=== PATIENT | male | born 1965 | race Caucasian/White ===

== ENCOUNTER 2017-05-05 12:05 | Inpatient (IN) | payer OTHER ==
[~2017-05-05] VITALS: Ht 180.3 cm; Wt 81.6 kg
--- NOTE | 2017-05-05 09:11 | NUR ---
PRN Zofran 4mg SL, Clonidine 0.1mg PO administered for nausea, no episodes of emesis and anxiety/irritability respectively. Call light within reach. Incoming nurse to reassess. Addendum: 05/06/17 at 1154 by CRESCENCIO LEONG RN Time 191
--- NOTE | 2017-05-05 14:55 | NUR ---
PRE-ASSESSMENT: Pre-Assessment done at intake office, client is A/O x4, he presents with flat affect, anxious mood, he is intoxicated, noted with delayed speech. Last alcoholic beverage a pint of vodka at 1330 prior to admission. T 98, RR 16, BP 117/73, HR 98, spO2 @ 98% on RA, pain 0/10. He is fully ambulatory. He denies any allergies; he denies any withdrawal-induced seizure. PMH: depression, pancreatitis. He denies taking medications at home. Substance history: Alcohol (Vodka) 750-1000 mL PO for the past week Longest period of sobriety 1 year from 2016 -2016. Unit protocol regarding vital signs Q4H, UDS, blood work, and controlled substance discuss with client, he stated, Ok, I got it.
[2017-05-05] MEDS ORDERED: LORAZEPAM 1 MG TABLET PO PRN (15:00)
[2017-05-05] MEDS ORDERED: LORAZEPAM 2 MG/1 ML VIAL IM PRN (15:00)
[2017-05-05] MEDS ORDERED: ONDANSETRON ODT 4 MG TAB.RAPDIS SL PRN (15:00)
[2017-05-05] MEDS ORDERED: ONDANSETRON 4 MG/2 ML VIAL IM PRN (15:00)
[2017-05-05] MEDS ORDERED: IBUPROFEN 400 MG TABLET PO PRN (15:00)
[2017-05-05] MEDS ORDERED: MIRALAX 17 GM POWD.PACK PO PRN (15:00)
[2017-05-05] MEDS ORDERED: LOPERAMIDE HCL 2 MG CAPSULE PO PRN ×2 (15:00)
[2017-05-05] MEDS ORDERED: MAGNESIUM HYDROXIDE 30 ML LIQUID UDC PO PRN (15:00)
[2017-05-05] MEDS ORDERED: ACETAMINOPHEN 325 MG TABLET PO PRN (15:00)
[2017-05-05] MEDS ORDERED: MAG HYDROX/AL HYDROX/SIMETH 30 ML LIQUID UDC PO PRN (15:00)
[2017-05-05] MEDS ORDERED: THIAMINE HCL 200 MG/2 ML VIAL IM ONE (15:00)
--- NOTE | 2017-05-05 15:05 | NUR ---
Admissions Note 51 year old male admitted to [facility] for withdrawal from alcohol. Client reports PMH pancreatitis, depression. Client is oriented to unit, educated about protocols and how to work TV and call light in his room. Weight: 180 pounds. Height: 5'11" Client appears anxious, skin intact. Bilateral lung clear on auscultation, abdomen soft, non-tender, no edema noted. Clients voice is soft, delayed, he avoids eye contact. Client has NKA. Regular diet ordered. Full code status ordered. Client denies any history of seizures. LBM was 05/05/17, moderate/brown/soft. Clients PCP Wilfred Calderon. He refuses PNA/FLU vaccine at this time, stating he is afraid he might get sick because of it. He gives verbal consent for HIV. Client states that he lives alone Dr John assessed client. Urine was collected upon admission. All safety measures instituted. [place] precaution. Call light within reach. Will continue to monitor.
[2017-05-05] MEDS ORDERED: LORAZEPAM 1 MG TABLET PO ONE (15:45)
[2017-05-05 15:50] LABS: *AMPHETAMINE, URINE NEGATIVE (NEGATIVE); *BARBITURATE, URINE NEGATIVE (NEGATIVE); *CANNABINOID, URINE NEGATIVE (NEGATIVE); *COCCAINE, URINE NEGATIVE (NEGATIVE); *OPIATE, URINE NEGATIVE (NEGATIVE); *PHENCYCLIDINE SCREEN,URINE NEGATIVE (NEGATIVE)
--- NOTE | 2017-05-05 16:08 | NUR ---
One time Ativan 2mg PO administered for anxiety/irritability. Call light within reach, will continue to monitor.
[2017-05-05 16:25] LABS: BASOPHILS # (AUTO) 0.1 K/uL (0.0-8.0); BASOPHILS % (AUTO) 1.1 % (0.0-2.0); EOSINOPHILS # (AUTO) 0.4 K/uL (0.0-0.7); EOSINOPHILS % (AUTO) 4.8 % (0.0-7.0); HEMATOCRIT 43.7 % (36.7-47.1); HEMOGLOBIN 15.1 g/dL (12.5-16.3); LYMPHOCYTES # (AUTO) 1.9 K/uL (20.0-40.0); LYMPHOCYTES % (AUTO) 25.9 % (20.5-51.5); MEAN CORPUSCULAR HEMOGLOBIN 32.7 uug (23.8-33.4); MEAN CORPUSCULAR HGB CONC 35 g/dL (32.5-36.3); MEAN CORPUSCULAR VOLUME 94.8 fL (73.0-96.2); MONOCYTES # (AUTO) 0.6 K/uL (2.0-10.0); MONOCYTES % (AUTO) 7.6 % (0.0-11.0); NEUTROPHILS # (AUTO) 4.5 K/uL (1.8-8.9); NEUTROPHILS % (AUTO) 60.6 % (38.5-71.5); PLATELET COUNT (AUTO) 339 K/uL (152-348); RED BLOOD CELL COUNT(AUTO) 4.61 MIL/uL (4.06-5.63); WHITE BLOOD COUNT (AUTO) 7.4 K/uL (3.6-10.2)
[2017-05-05 16:29] LABS: BILIRUBIN,TOTAL 0.2 mg/dL (0.2-1.0); CREATININE 1.1 mg/dL (0.6-1.3); MAGNESIUM 1.7 mg/dL (1.8-2.4); POTASSIUM 4.6 mmol/L (3.5-5.1); TOTAL PROTEIN, SERUM 8.3 g/dL (6.4-8.2)
--- NOTE | 2017-05-05 17:08 | NUR ---
Reassessment One time Ativan 2mg PO administered, client is in bed, eyes closed, RR 16, even, non-labored. Call light within reach, will continue to monitor.
[2017-05-05] MEDS: CLONIDINE HCL 0.1 MG TABLET PO PRN (19:11)
--- NOTE | 2017-05-05 19:15 | NUR ---
START OF SHIFT NOTE : Client is a 51 y/o male admitted for alcohol withdrawal. Last CIWA 5 at 19:00. Client reports NKA, Full Code , Reg. Diet. Client reports PMH pancreatitis, depression. Pt. denies any history of seizures. Pt. is resting the room , watching TV. Pt. complains of sleeplessness, mild body ache, increased level of anxiety. Bed in lowest/locked position. Side rails x 2 up/padded. Call light within reach.
--- NOTE | 2017-05-05 19:29 | NUR ---
END OF SHIFT Endorsed to incoming nurse. Client is in his room, he presents with anxious mood, flat affect, he is a/o x 4. Client is a 51 y/o male admitted for alcohol withdrawal. Last CIWA 7. One time dose of Ativan 2mg administered for anxiety/irritability. Seizure precautions rendered. Bed in lowest/locked position. Side rails x 2 up/padded. Call light within reach.
[2017-05-05] MEDS: diphenhydrAMINE 50 MG CAPSULE PO PRN (19:45)
[2017-05-05 20:00] VITALS: BP 106/64
[2017-05-05] MEDS ORDERED: MAGNESIUM OXIDE 400 MG TABLET PO ONE (21:00)
[2017-05-05] MEDS ORDERED: LORAZEPAM 1 MG TABLET PO SCH (21:00)
--- NOTE | 2017-05-05 21:00 | NUR ---
PRN BENADRYL Pt. complains of sleeplessness. PRN BENADRYL given as ordered. Safety measures in place : bed on lowest position with side rails x2 up for safety, call light within reach. Will continue to monitor closely and offer help.
--- NOTE | 2017-05-05 22:00 | NUR ---
RE-ASSESSMENT SAMANTHA Pt. is sleeping, RR=16 unlabored and even. Safety measures in place : bed on lowest position with side rails x2 up for safety, call light within reach. Will continue to monitor closely and offer help.
[2017-05-06] MEDS: LORAZEPAM 1 MG TABLET PO PRN ×2 (01:42→10:45)
--- NOTE | 2017-05-06 01:42 | NUR ---
Ativan PRN Pt presents with moderate anxiety & agitation. Pt states, "This isn't okay, I can't sleep". Pt's skin noted with moderate sweat, tremors felt upon touch, CIWA 8. Ativan 1mg PRN administered. Safety measures in place will continue to monitor.
--- NOTE | 2017-05-06 02:40 | NUR ---
RE-ASSESSMENT ATIVAN Pt. is sleeping, RR=16 unlabored and even. Safety measures in place : bed on lowest position with side rails x2 up for safety, call light within reach. Will continue to monitor closely and offer help.
[2017-05-06 04:00] VITALS: BP 123/81
--- NOTE | 2017-05-06 06:41 | NUR ---
END OF SHIFT NOTE : Client is a 51 y/o male admitted for alcohol withdrawal. Last CIWA 5 at 19:00. Client reports NKA, Full Code , Reg. Diet. Client reports PMH pancreatitis, depression. Pt. denies any history of seizures. Pt remains compliant with the treatment plan. PRN Benadryl, Ativan given during my shift. V/S remain WNL. RR=16, even and unlabored, lungs clear upon auscultation, abdomen soft and non- distended. Pt denies nausea, vomiting and diarrhea. CIWA taken when pt. was alert during the night, LAST CIWA= 5 at 0400 , VISSWY=195 ml, voided x3 , slept 9 hours. Safety measures in place : bed on lowest position with side rails x2 up for safety, call light within reach. Will continue to monitor closely and offer help.
--- NOTE | 2017-05-06 07:45 | NUR ---
START OF SHIFT Rcvd endorsement from ongoing nurse, client is in room, a/o x 4, he is in bed, presents with depressed, anxious mood, flat affect, disheveled, unshaved, flushed face, fine tremors, and moist skin noted. Client reports anxiety, irritability, nausea, no appetite, restless legs, and fatigue. Client denies any N/V/D. Encourage client to increase PO fluid intake as tolerated to facilitated detox. Encourage client to attend group therapy for skills to maintain sober. Client is a 51 y/o male admitted for withdrawal from alcohol. Last CIWA 5 @ 0400. Client is on 5 day Ativan taper, to start @ 0900. PRN Ativan 1mg CIWA 8 @ 0142, noted effective. Client slept 9 hrs. NKA, regular diet, full code. Bed in lowest/locked position, side rails x 2 up/padded, call light within reach. Will continue to monitor.
[2017-05-06 08:22] VITALS: BP 133/78
[2017-05-06] MEDS: FOLIC ACID 1 MG TABLET PO SCH (08:26)
[2017-05-06] MEDS: THIAMINE HCL 100 MG TABLET PO SCH (08:26)
[2017-05-06] MEDS: LORAZEPAM 1 MG TABLET PO SCH ×2 (08:26→12:13)
[2017-05-06] MEDS: MULTIVITAMINS,THERAPEUTIC TABLET PO SCH (08:26)
--- NOTE | 2017-05-06 08:27 | NUR ---
TB test administered to L forearm, client tolerated well.
[2017-05-06] MEDS ORDERED: TUBERCULIN,PURIF.PROT.DERIV. 5 TU/0.1 ML TEST ID ONE (09:00)
--- NOTE | 2017-05-06 10:45 | NUR ---
PRN Ativan 1mg PO for CIWA 9, fine tremors, nausea, sweats, anxiety and Clonidine 0.1mg PO for irritability. Will continue to monitor. Call light within reach.
[2017-05-06] MEDS: CLONIDINE HCL 0.1 MG TABLET PO PRN ×2 (10:46→16:55)
--- NOTE | 2017-05-06 11:45 | NUR ---
Reassessment PRN Ativan 1mg PO client continues to present with increased anxiety, he reports abdominal cramps, and Clonidine 0.1mg PO client continue to present with irritable mood, inability to stay still. Will administer schedule medication Ativan 2mg PO @ 1200. Will continue to monitor. Call light within reach.
[2017-05-06] MEDS: DICYCLOMINE HCL 20 MG TABLET PO PRN (12:13)
--- NOTE | 2017-05-06 12:13 | NUR ---
PRN Bentyl 20mg PO administered for abdominal spams, will continue to monitor. Call light within reach.
[2017-05-06 12:15] VITALS: BP 136/81
--- NOTE | 2017-05-06 12:26 | NUR ---
Therapist prompted client to come to group today. Client agreed
--- NOTE | 2017-05-06 13:13 | NUR ---
Reassessment PRN Bentyl 20mg, client reports relief from abdominal spams. Call light within reach.
[2017-05-06] MEDS: HYDROXYZINE PAMOATE 25 MG CAPSULE PO PRN (14:01)
--- NOTE | 2017-05-06 14:01 | NUR ---
PRN Vistaril 50mg PO administered for anxiety. call light within reach.
--- NOTE | 2017-05-06 15:01 | NUR ---
Reassessment PRN Vistaril 50mg PO, client is in bed, he stated "I'm plannng on going to group therapy, I feel a little less anxious." Call light within reach.
[2017-05-06 16:54] VITALS: BP 138/99
--- NOTE | 2017-05-06 16:55 | NUR ---
Patient c/o anxiety, irritability. Adm Clonidine 0.1 mg PO PRN. Will monitor for safety. Call light with in reach
--- NOTE | 2017-05-06 17:55 | NUR ---
reassessment- Pt sitting in bed, watching TV, drinking water. Will continue to monitor. call light with in reach.
--- NOTE | 2017-05-06 18:45 | NUR ---
END OF SHIFT Client is a 51 y/o male, a/o x 4, admitted for withdrawal from alcohol. Last CIWA @ 0400. Client is on modified 4 day Ativan taper, tolerating well. PRN Ativan 1mg CIWA 9 @ 1045, Bentyl 20mg PO administered for abdominal spasms, PRN Vistaril 50mg PO administered for anxiety, Clonidine 0.1mg x 2 PO for irritability/anxiety. Adequate Po fluid intake 1937mL, void x 3, stool x 2. Client was compliant with group therapy. NKA, regular diet, full code. Bed in lowest/locked position, side rails x 2 up/padded, call light within reach. Endorsed to incoming nurse. Addendum: 05/06/17 at 1847 by CRESCENCIO LEONG RN Last CIWA 7 @ 1600
--- NOTE | 2017-05-06 19:15 | NUR ---
START OF SHIFT NOTE : Client is a 51 y/o male admitted for alcohol withdrawal. Last CIWA 5 at 19:00. Client reports NKA, Full Code , Reg. Diet. Client reports PMH pancreatitis, depression. Pt. denies any history of seizures. Pt. complains of increased level of anxiety, sleeplessness, constantly asking to get his evening medications earlier. Safety measures in place : bed on lowest position with side rails x2 up for safety, call light within reach. Will continue to monitor closely and offer help.
[2017-05-06] MEDS: diphenhydrAMINE 50 MG CAPSULE PO PRN (20:02)
[2017-05-06] MEDS ORDERED: LORAZEPAM 1 MG TABLET PO SCH (21:00)
--- NOTE | 2017-05-07 06:35 | NUR ---
END OF SHIFT NOTE : Client is a 51 y/o male admitted for alcohol withdrawal. Last CIWA 5 at 19:00. Client reports NKA, Full Code , Reg. Diet. Client reports PMH pancreatitis, depression. Pt. denies any history of seizures Pt remains compliant with the treatment plan. PRN BENADRYL given during my shift. V/S remain WNL. RR=16, even and unlabored, lungs clear upon auscultation, abdomen soft and non- distended. Pt denies nausea, vomiting and diarrhea. CIWA taken when pt. was alert during the night, LAST CIWA= 5 at 0400 , INTAKE=1,000 ml, voided x2 , slept 8 hours. Safety measures in place : bed on lowest position with side rails x2 up for safety, call light within reach. Will continue to monitor closely and offer help.
[2017-05-07 07:31] LABS: CREATININE 0.9 mg/dL (0.6-1.3); MAGNESIUM 1.7 mg/dL (1.8-2.4); PHOSPHOROUS 4.8 mg/dL (2.5-4.9); POTASSIUM 4.6 mmol/L (3.5-5.1)
--- NOTE | 2017-05-07 08:00 | NUR ---
Start shift report-Rcvd endorsement from ongoing nurse, client is in room, a/o x 4, he is in bed, presents with depressed, anxious mood, flat affect, disheveled, unshaved, flushed face, fine tremors, and moist skin noted. Client reports anxiety, irritability. Client denies any N/V/D. Encourage client to increase PO fluid intake as tolerated to facilitated detox. Encourage client to attend group therapy for skills to maintain sober. Client is a 51 y/o male admitted for withdrawal from alcohol. Last CIWA 5 @ 0400. Client is on modified 4 day Ativan taper. Client slept 8 hrs. NKA, regular diet, full code. Bed in lowest/locked position, side rails x 2 up/padded, call light within reach. Will continue to monitor.
[2017-05-07 08:54] VITALS: BP 133/66
[2017-05-07] MEDS ORDERED: LORAZEPAM 1 MG TABLET PO SCH (09:00)
[2017-05-07] MEDS: MULTIVITAMINS,THERAPEUTIC TABLET PO SCH (09:20)
[2017-05-07] MEDS: THIAMINE HCL 100 MG TABLET PO SCH (09:20)
[2017-05-07] MEDS: FOLIC ACID 1 MG TABLET PO SCH (09:20)
[2017-05-07] MEDS: LORAZEPAM 1 MG TABLET PO SCH ×3 (09:24→20:12)
[2017-05-07] MEDS: HYDROXYZINE PAMOATE 25 MG CAPSULE PO PRN ×2 (10:25→17:26)
[2017-05-07] MEDS: CLONIDINE HCL 0.1 MG TABLET PO PRN ×2 (10:25→17:26)
[2017-05-07] MEDS: DICYCLOMINE HCL 20 MG TABLET PO PRN ×2 (10:25→17:25)
--- NOTE | 2017-05-07 10:25 | NUR ---
Administered PRN Bentyl 20 mg for abd spasm. Catapress 0.1 mg for anxiety, Vistaril 50 mg for anxiety
--- NOTE | 2017-05-07 11:25 | NUR ---
reassess Bentyl 20 mg, stomach cramps resolved. Vistaril 50 mg for anxiety, not improved, pt c/o moderate anxiety. Catapress 0.1 mg for anxiety, not improved. Pt c/o moderate anxiety.
[2017-05-07 12:28] VITALS: BP 132/82
[2017-05-07] MEDS ORDERED: LORAZEPAM 1 MG TABLET PO ONE (12:30)
--- NOTE | 2017-05-07 12:33 | NUR ---
One time dose Ativan 1mg PO administered for anxiety, irritability, inability to stay still, fine tremors, CIWA 10. 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 Will continue to monitor.
--- NOTE | 2017-05-07 13:35 | NUR ---
Reasses one time dose Ativan 1mg PO administered for anxiety, irritability, inability to stay still, fine tremors, CIWA 10. Patient in bed appears to be sleeping. Resp even and unlabored. Bed low position, locked. Call light within reach.
[2017-05-07] MEDS ORDERED: MAGNESIUM OXIDE 400 MG TABLET PO ONE (14:15)
[2017-05-07 16:00] VITALS: BP 124/83
--- NOTE | 2017-05-07 17:26 | NUR ---
Administration PRN Bentyl 20 mg PO for abd spasm, Vistaril 50mg PO for anxiety, Catapress 0.1mg PO for anxiety.
--- NOTE | 2017-05-07 18:25 | NUR ---
Reassess PRN- Bentyl 20 mg PO, abd spasm resolved. PRN Catapress 0.1mg PO for anxiety and vistaril 50mg PO for anxiety, pt states "anxiety is much better".
--- NOTE | 2017-05-07 18:37 | NUR ---
End of shift report- Client is in room watching TV, a/o x 4, presents with depressed, anxious mood, flat affect, disheveled, unshaved, flushed face, and fine tremors. Client reports anxiety, irritability. Administered PRN medications per protocol for stomach spasm and anxiety. Adequate PO fluid intake 4000 ml, voids x5, BM x1. PT compliant and attended group therapy for coping skill to maintain sobriety. Client is a 51 y/o male admitted for withdrawal from alcohol. Last CIWA 11 @ 1600. Client is on modified 4 day Ativan taper. Patient has NKA, regular diet, full code. Bed in lowest/locked position, side rails x 2 up/padded, call light within reach. Will continue to monitor and endorse to PM shift.
--- NOTE | 2017-05-07 19:45 | NUR ---
Start of Shift Notes Received a 51 y/o male px admitted for alcohol withdrawal. Client reports NKA, Full Code , and on Regular Diet. Client reports PMHx of pancreatitis, depression. Px denies any history of seizures. During the rounds at 1945, px ask for medication to help him sleep other than the standing order Ativan 1 mg at 2100. Safety measures in place, bed on lowest position with side rails x2 up for safety, call light within reach. We'll continue to monitor.
[2017-05-07 20:00] VITALS: BP 115/73
[2017-05-07] MEDS: diphenhydrAMINE 50 MG CAPSULE PO PRN (20:12)
--- NOTE | 2017-05-07 22:13 | NUR ---
PRN meds Px asked for pill to help him sleep tonight. Benadryl 50 mg/cap, 1 cap given PO as PRN med at 2011 and Trazodone 50 mg/tab, 1 tab given PO as one time dose at 2212. We'll continue to monitor.
[2017-05-07] MEDS ORDERED: TRAZODONE 50 MG TABLET PO ONE (22:15)
[2017-05-07] MEDS ORDERED: TRAZODONE 50 MG TABLET ONE (22:28)
[2017-05-08] VITALS: BP 110/69
[2017-05-08 04:00] VITALS: BP 112/71
--- NOTE | 2017-05-08 04:00 | NUR ---
CIWA deferred CIWA deferred at 0000 and 0400 due to the px is asleep, to assess if the px is awake per doctor's order. We'll continue to monitor.
--- NOTE | 2017-05-08 07:15 | NUR ---
End of Shift Notes 51 y/o male px admitted for alcohol withdrawal. Client reports NKA, Full Code , and on Regular Diet. Client reports PMHx of pancreatitis, depression. Px denies any history of seizures. During the shift, px ask for medication to help him sleep other than the standing order Ativan 1 mg at 2100. Benadryl 50 mg/cap, 1 cap given PO as PRN med at 2011 and Trazodone 50 mg/tab, 1 tab given PO as one time dose at 2212. Oral intake of 500 ml, voided 2x, BM 1x. Slept for 7 hours. Safety measures in place, bed on lowest position with side rails x2 padded up for safety, call light within reach. We'll continue to monitor.
--- NOTE | 2017-05-08 07:15 | NUR ---
Start of Shift Report from the night nurse: pt is a 51 y/o male here for Etoh r/t Vodka 1L daily; 5 day Ativan taper ordered. Pt is a full code, NKA, seizure precautions ordered. HHX: Pancreatitis, depression and partial colectomy & Pancrease resection, multiple relapses. Pt is a non-smoker. V/S stable. Skin is intact. PRN Benadryl and Tazadolene given last night for insomnia. Endorsed to me that the pt may go AMA today for unknown reasons. Last CIWA 5. Pt is in room asleep. Will cont. to monitor the pt.
[2017-05-08 08:00] VITALS: BP 118/77
[2017-05-08] MEDS: THIAMINE HCL 100 MG TABLET PO SCH (08:38)
[2017-05-08] MEDS: MULTIVITAMINS,THERAPEUTIC TABLET PO SCH (08:38)
[2017-05-08] MEDS: FOLIC ACID 1 MG TABLET PO SCH (08:38)
[2017-05-08] MEDS ORDERED: LORAZEPAM 1 MG TABLET PO SCH ×2 (09:00)
--- NOTE | 2017-05-08 10:10 | NUR ---
AMA Pt is A&O x 4, ambulatory independently. Pt states that he has to leave today since he has a working meeting that is mandatory for him to attend and that he feels as if he has meet his needs for detoxifications and does not need to stay here any longer or go to the Rehab. I explained to the pt that he is breaking the POC that was discussed with the MD and the risks that he is taking and the potential negative outcomes. The pt refused to follow through with the POC, he signed the AMA sheet, given a list of resources and chaperoned to the lobby with his belongings. Dr. Moreira was aware of the pt's possible AMA since yesterday and Dr. John notified of the pt's statements and actions today. V/S stable and Skin intact.
[2017-05-09 06:06] LABS: HEPATITIS B SURFACE AG Negative (Negative)
[2017-05-09] MEDS ORDERED: LORAZEPAM 1 MG TABLET PO SCH ×2 (09:00)
[2017-05-10] MEDS ORDERED: LORAZEPAM 1 MG TABLET PO SCH (09:00)
== END 2017-05-08 10:05 | disposition left against medical advice (07) | DRG 894 ==
LOC: SRC 14:20
PROVIDERS: ADMIT Internal Medicine; ATTEND Internal Medicine
PROC: HZ2ZZZZ Detoxification Services for Substance Abuse Treatment (ICD-10-PCS; principal; 2017-05-05)
PROC: HZ41ZZZ Group Counseling for Substance Abuse Treatment, Behavioral (ICD-10-PCS; 2017-05-06)
PROC: HZ31ZZZ Individual Counseling for Substance Abuse Treatment, Behavioral (ICD-10-PCS; 2017-05-07)
DX: F10.230 Alcohol dependence with withdrawal, uncomplicated (principal); K70.10 Alcoholic hepatitis without ascites; E83.42 Hypomagnesemia; Y90.8 Blood alcohol level of 240 mg/100 ml or more; Z90.49 Acquired absence of other specified parts of digestive tract; Z81.1 Family history of alcohol abuse and dependence; R73.9 Hyperglycemia, unspecified
CPT/HCPCS: 36415; 70030-TC; 80307; 83690; 83735; 84100; 85025; 86580; 86592; 86705; 86803; 87340; 87806; G0480; J3411; Q0162; Q0163